=== PATIENT | female | born 1955 | race Caucasian/White ===

== ENCOUNTER 2017-12-28 12:27 | Outpatient (CLI) | payer OTHER | END 2017-12-28 12:30 | disposition home or self-care (01) | LOC: EKG 12:27 | DX: I10 Essential (primary) hypertension (principal) ==

== ENCOUNTER 2018-01-12 05:15 | Day surgery (SDC) | payer OTHER | END 2018-01-12 14:45 | disposition home or self-care (01) | LOC: CIR.AMB 05:15 → AMB-ENDOS 14:15 → CIR.AMB 14:15 | DX: K60.5 Anorectal fistula (principal) ==

== ENCOUNTER 2018-04-27 05:40 | Day surgery (SDC) | payer OTHER ==
[~2018-04-27 05:40] MED LIST: COZAAR25 MG; SYNTHROID50 MCG
== END 2018-04-27 15:55 | disposition home or self-care (01) ==
LOC: CIR.AMB 05:40
DX: K60.5 Anorectal fistula (principal)